=== PATIENT | female | born 1945 | race Caucasian/White ===

== ENCOUNTER 2022-02-27 10:14 | Outpatient (CLI) | payer MEDICARE, BC, SELFPAY ==
--- NOTE | 2022-02-27 06:00 | DI.RAD_ITS ---
Exam(s) XR PAIN CLINIC SACRIOILIAC 2V EXAM: XR PAIN CLINIC SACRIOILIAC 2V CLINICAL HISTORY: Dx: Sacroiliac Joint Dysfunction TECHNIQUE: 2D and realtime digital imaging was performed. CONTRAST MATERIAL: Refer to procedure report. COMPARISON: No exams were available for comparison FINDINGS: Fluoroscopy was provided for Dr. Bailey during the performance of a sacroiliac joint injection. Eliana ferrera refer to the procedure report for complete details. Ka,r=11.9 mGy IMPRESSION:
[2022-02-27 10:44] VITALS: BP 125/71; PULSE 82; RESP 20; TEMP 37.2; O2SAT 96
[2022-02-27 11:45] VITALS: BP 134/59; PULSE 79; RESP 21; O2SAT 94
--- NOTE | 2022-02-27 11:45 | PDOC.PAIN ---
Date of service: 02/27/22 Time of Service: 11:57 Pain Clinic Procedure Note Procedure Note Procedure Note: INTRA-ARTICULAR SI JOINT INJECTION Maria Del Rosario Fabian has been referred to the Pain Management Center for intra-articular SI joint injection. COMMENTS: She has had this procedure in the past with excellent results. Pre-procedure pain VAS was 8/10. Dx: Bilateral Sacroiliac joint dysfunction Patient was interviewed and the medical record reviewed. There were no medical, pharmacologic, radiographic or other structural contraindications to attempting fluoroscopically guided intra-articular SI joint injection. Risks and expected side effects as well as potential benefit of the procedure were reviewed and voiced concerns addressed. The printed consent form was signed and witnessed. Standard time-out procedure was performed. Patient was placed in the prone position on the fluoroscopy table and automated blood pressure cuff and pulse oximeter applied. The skin entry point for approaching the bilateral SI joints was identified under the most advantageous fluoroscopic view and marked. Following thorough Chlorhexadine preparation of the skin and draping and 1% lidocaine infiltration of the skin entry point and subcutaneous tissues, a 22 gauge spinal needle was placed under fluoroscopic guidance into the bilateral SI joints was identified under the most advantageous fluoroscopic view and marked. Intra-articular placement was confirmed by a clear arthrogram resulting from the injection of 0.25ml Omnipaque 240, 1ml 1% lidocaine, and 40mg Depomedrol were injected intra-articularily with an initial reproduction of a significant component of the usual pain. Vital signs were stable throughout the procedure and were as recorded in the docflowsheet by the nursing staff. If given, dosages of intravenous drugs for anxiolysis and analgesia were documented in MAR. Follow up plans and appointments were discussed with the patient. Post procedure instruction was given as documented in nursing documentation and having met discharge criteria, and was discharged from the Pain Management Center. COMMENTS: Post-procedure pain VAS was 4/10. If this procedure is found to be helpful, it can be completed up to 3 times per 12 months. Tirso Bailey DO, MPH [facility]-Pain Management [facility]-Center for Pain Management CC: Aamir Greene
[2022-02-27] MEDS: methylPREDNISolone ACETATE 80 MG/ML VIAL IJ (11:55)
[2022-02-27] MEDS: Omnipaque 240 MG/ML 50 ML BTL IJ (11:55)
== END 2022-02-27 10:15 | disposition home or self-care (01) ==
LOC: PC 10:14
PROVIDERS: PCP Family Medicine; Visit Provider Preventive Medicine Occupational Medicine
DX: M53.3 Sacrococcygeal disorders, not elsewhere classified (principal); M54.50 Low back pain, unspecified
CPT/HCPCS: 27096; 72200; G0260; J1040; Q9967

== ENCOUNTER 2022-07-09 16:03 | Outpatient (CLI) | payer MEDICARE, BC, SELFPAY ==
--- NOTE | 2022-07-09 06:00 | DI.RAD_ITS ---
Exam(s) XR PAIN CLINIC SACRIOILIAC 2V EXAM: XR PAIN CLINIC SACRIOILIAC 2V CLINICAL HISTORY: Dx: Sacroiliac Joint Dysfunction TECHNIQUE: 2D and realtime digital imaging was performed. CONTRAST MATERIAL: Refer to procedure report. COMPARISON: No exams were available for comparison FINDINGS: Fluoroscopy was provided for Dr. Bailey during the performance of a sacroiliac joint injection. Eliana ferrera refer to the procedure report for complete details. Ka,r=13.4 mGy IMPRESSION:
[2022-07-09 16:19] VITALS: BP 174/79; PULSE 74; RESP 20; TEMP 36.3; O2SAT 94
--- NOTE | 2022-07-09 16:43 | PDOC.PAIN ---
Date of service: 07/09/22 Time of Service: 17:02 Pain Managment Procedure Note Procedure Note Procedure Note: INTRA-ARTICULAR SI JOINT INJECTION Maria Del Rosario Fabian has been referred to the Pain Management Center for intra-articular SI joint injection. COMMENTS: She did have a bilateral SIJ injecitons on 02/27/22 with >3 months of >50% pain relief. Pre-procedure pain VAS was 7/10 Dx: Sacroiliac joint dysfunction Patient was interviewed and the medical record reviewed. There were no medical, pharmacologic, radiographic or other structural contraindications to attempting fluoroscopically guided intra-articular SI joint injection. Risks and expected side effects as well as potential benefit of the procedure were reviewed and voiced concerns addressed. The printed consent form was signed and witnessed. Standard time-out procedure was performed. Patient was placed in the prone position on the fluoroscopy table and automated blood pressure cuff and pulse oximeter applied. The skin entry point for approaching the bilateral SI joints was identified under the most advantageous fluoroscopic view and marked. Following thorough Chlorhexadine preparation of the skin and draping and 1% lidocaine infiltration of the skin entry point and subcutaneous tissues, a 22 gauge 3.5 spinal needle was placed under fluoroscopic guidance into the bilateral SI joints was identified under the most advantageous fluoroscopic view and marked. Intra-articular placement was confirmed by a clear arthrogram resulting from the injection of 0.25ml Omnipaque 240, 1ml 1% lidocaine, and 40mg Depomedrol were injected intra-articularily with an initial reproduction of a significant component of the usual pain. Vital signs were stable throughout the procedure and were as recorded in the docflowsheet by the nursing staff. If given, dosages of intravenous drugs for anxiolysis and analgesia were documented in MAR. Follow up plans and appointments were discussed with the patient. Post procedure instruction was given as documented in nursing documentation and having met discharge criteria, and was discharged from the Pain Management Center. COMMENTS: Post-procedure pain VAS was 0/10. This procedure can be repeated if she gets at least 50% pain improvement and/or 50% functional improvement for at least 3 months. Tirso Bailey DO, MPH [facility]-Pain Management [facility]-Center for Pain Management CC: Aamir Greene
[2022-07-09] MEDS: methylPREDNISolone ACETATE 80 MG/ML VIAL IJ (17:02)
[2022-07-09] MEDS: Omnipaque 240 MG/ML 50 ML BTL IJ (17:02)
[2022-07-09 17:05] VITALS: BP 175/83; PULSE 71; RESP 21; O2SAT 94
== END 2022-07-09 16:04 | disposition home or self-care (01) ==
LOC: PC 16:03
PROVIDERS: PCP Family Medicine; Visit Provider Preventive Medicine Occupational Medicine
DX: M46.1 Sacroiliitis, not elsewhere classified (principal)
CPT/HCPCS: 27096; 72200; J1040; Q9967

== ENCOUNTER 2022-11-20 11:25 | Outpatient (CLI) | payer MEDICARE, BC, SELFPAY ==
[2022-11-20 11:43] VITALS: BP 145/80; PULSE 59; RESP 20; TEMP 36.3; O2SAT 97
--- NOTE | 2022-11-20 12:38 | DI.RAD_ITS ---
Exam(s) XR PAIN CLINIC SACRIOILIAC 2V EXAM: XR PAIN CLINIC SACRIOILIAC 2V CLINICAL HISTORY: Dx: Sacroiliac Joint Dysfunction TECHNIQUE: 2D and realtime digital imaging was performed. Radiologist not present. CONTRAST MATERIAL: None. COMPARISON: No exams were available for comparison FINDINGS: Fluoroscopy was provided for pain management therapy. Please refer to procedure report or details. Radiation Exposure Index: Ka,r=16.04 mGy IMPRESSION: As above. RADIATION DOSE DELIVERED:
--- NOTE | 2022-11-20 12:39 | PDOC.PAIN_ITS ---
Date of service: 11/20/22 Time of Service: 12:40 Pain Managment Procedure Note Procedure Note Procedure Note: PROCEDURE NOTE BILATERAL INTRA-ARTICULAR SACROILIAC JOINT INJECTION Date of Service: November 20, 2022 Patient: Maria Del Rosario Fabian Provider: Tirso Ashley DO, MPH COMMENTS: I previously evaluated the patient in the office and their symptoms in relation to the sacroiliac joint pain have remained the same. She had 80% pain relief for 4 months with her last bilateral sacroiliac joint injection (07/09/2022). The pain has now returned Pre-operative diagnosis: Sacroiliac joint dysfunction Post-operative diagnosis: Same Pre-procedure pain: VAS= 8/10 Maria Del Rosario Fabian has been referred to our [facility] for a Bilateral intra-articular Sacroiliac joint injection. Maria Del Rosario was interviewed and the medical record reviewed. There were no medical, pharmacologic, radiographic or other structural contraindications to attempting a fluoroscopically-guided, contrast-enhanced, intra-articular Sacroiliac joint injection. The risks, benefits, and potential side effects of this procedure were reviewed with the patient. Questions and concerns were addressed. After it was clear that Maria Del Rosario was fully informed about the procedure, the printed consent form was signed by the patient and myself. Maria Del Rosario was placed in the prone position on the fluoroscopy table and an automated blood pressure cuff, 3 lead EKG, and pulse oximeter were applied. The skin entry point for approaching the Left sacroiliac joint was identified under the most advantageous fluoroscopic view and marked. Following thorough Chlorhexadine preparation of the skin and draping with sterile surgical drapes, 2 mls of 1% lidocaine was infiltrated into the skin at the entry point and the surrounding subcutaneous tissues. Next, a 3.5 22G spinal needle was placed under fluoroscopic guidance into the left sacroiliac joint. Intra-articular placement was confirmed by a clear arthrogram resulting from the injection of 0.25ml of Omnipaque-240. Next, 0.5 ml of Depo- Medrol 80 mg/ml was injected intra-articularly with an initial reproduction of a significant component of the usual pain. This was followed with 1 ml of 1% Lidocaine. The needle was then removed without difficulty. (49 ml of Omnipaque-240 was wasted). The exact procedure was completed on the opposite sacroiliac joint. Maria Del Rosario's vital signs were stable throughout the procedure and were as recorded in nursing records. Follow up plans and appointments were discussed with Maria Del Rosario. Post procedure i nstructions were given as documented in nursing records. Having met discharge criteria, Maria Del Rosario was discharged from the [facility]. COMMENTS: Post-procedure pain: VAS= 0/10. If the patient receives at least 50% improvement in pain and/or function for at least 3 months, this procedure can be repeated if needed. I personally performed this entire procedure. TIRSO ASHLEY DO, MPH ABP[employer]-subspecialty board certification in Pain Medicine [facility] [facility] Management
[2022-11-20] MEDS: Omnipaque 240 MG/ML 50 ML BTL IJ (12:42)
[2022-11-20] MEDS: methylPREDNISolone ACETATE 80 MG/ML VIAL IJ (12:42)
[2022-11-20 12:43] VITALS: BP 157/79; PULSE 86; RESP 23; O2SAT 93
== END 2022-11-20 11:26 | disposition home or self-care (01) ==
PROVIDERS: PCP Family Medicine; Visit Provider Preventive Medicine Occupational Medicine
DX: M46.1 Sacroiliitis, not elsewhere classified (principal); M54.50 Low back pain, unspecified
CPT/HCPCS: 27096; 72200; J1040; Q9967

== ENCOUNTER 2023-04-22 13:24 | Outpatient (CLI) | payer MEDICARE, BC, SELFPAY ==
[2023-04-22 13:44] VITALS: BP 128/55; PULSE 89; RESP 20; TEMP 36.6; O2SAT 93
--- NOTE | 2023-04-22 14:36 | PDOC.PAIN ---
Date of service: 04/22/23 Time of Service: 14:36 Pain Managment Procedure Note Procedure Note Procedure Note: PROCEDURE NOTE RIGHT L5 TRANSFORAMINAL EPIDURAL STEROID INJECTION Chief Complaint: RIGHT leg pain. Date of Service: April 22, 2023 Patient: Maria Del Rosario Fabian Provider: Tirso Ashley DO, MPH Maria Del Rosario Fabian has been referred to the Pain Management Center for a transforaminal epidural steroid injection. Pre-operative diagnosis: Lumbosacral Radiculopathy Post-operative diagnosis: Same Pre-Procedure Pain: VAS= 10/10 Comments: I previously evaluated the patient in our clinic and their symptoms remain the same as they were at that time. Maria Del Rosario was interviewed and the medical record reviewed. There were no medical, pharmacologic, radiographic or other structural contraindications to attempting a fluoroscopically-guided transforaminal lumbar epidural steroid injection. The risks, benefits, and potential side effects were reviewed with the patient. Risks include, but are not limited to, [id number] headache, infection, bleeding, nerve injury, spinal cord damage, allergic reaction, possible increase in symptoms over the ensuing 24 to 48 hours, paralysis, and . The patient appeared to understand, questions were answered to the patient?s satisfaction and the patient agreed to proceed. Once I obtained informed verbal consent, the printed consent form was signed by the patient and myself. A standard time-out procedure was performed. Maria Del Rosario was placed in the prone position on the fluoroscopy table and automated blood pressure cuff, three lead EKG, and pulse oximeter were applied. The skin entry point for entering/approaching the right L5 space for the transforaminal epidural steroid injection was marked. Following thorough chlorhexadine preparation of the skin and draping, 2 ml of 1% lidocaine was infiltrated into the skin over the entry point and subcutaneous tissues. Under fluoroscopic guidance, in ipsilateral oblique view, a co-axial approach using a 5 22G spinal needle was advanced to the base of the right L5 pedicle. The needle was advanced to the superio-posterior aspect of the neural foramen under lateral view. Oblique and AP views were rechecked. Under AP and lateral views, 1 ml of Omnipaque-240 was injected while visualized with fluoroscopy. There was no evidence of intravascular or intrathecal uptake, the epidural space was delineated. Next 1.5 ml of preservative-free Dexamethasone (10 mg/ml) was injected after negative aspiration. This was followed by 1 ml of preservative-free 1% lidocaine. (49 mls of Omnipaque-240 was wasted) There was no unusual discomfort expressed by Maria Del Rosario. The needle was withdrawn without difficulty. Maria Del Rosario was observed and was without hemodynamic, neurologic, or allergic reactions.? Fluoroscopic images were digitally archived. Maria Del Rosario's vital signs were stable throughout the procedure and were as recorded in the docflowsheet by the nursing staff.? If given, dosages of intravenous drugs for anxiolysis and analgesia were documented in MAR. Follow up plans and appointments were discussed with Maria Del Rosario. Post procedure instruction was given as documented in nursing records and having met discharge criteria Maria Del Rosario was discharged from the Pain Management Center. COMMENTS: Post-procedure pain: VAS= 0/10. Maria Del Rosario to contact Center for Pain Management as needed. If at least 50% improvement in pain and/or function for at least 3 months is achieved, this procedure can be repeated. I personally performed this entire procedure. TIRSO ASHLEY DO, MPH ABP[employer]-subspecialty board certification in Pain Medicine [facility]-Center for Pain Management
[2023-04-22 14:42] VITALS: BP 154/67; PULSE 86; RESP 22; O2SAT 94
--- NOTE | 2023-04-22 14:42 | DI.RAD_ITS ---
Exam(s) XR PAIN CLINIC LUMBAR SP 2V EXAM: XR PAIN CLINIC LUMBAR SP 2V CLINICAL HISTORY: Dx: Lumbar Radiculopathy. TECHNIQUE: Fluoroscopy was provided for the referring physician for guidance with performing pain cl inic injection procedure. COMPARISON: No exams were available for comparison FINDINGS: Please see procedure note for details. Fluoro time: 28.4 seconds RADIATION DOSE DELIVERED: Ka,r=25.17 mGy
[2023-04-22] MEDS: Dexamethasone Sod. Phos./Pres-Free 10 MG/ML VIAL IJ (14:44)
[2023-04-22] MEDS: Nerve Block Tray 1 EACH MC (14:44)
[2023-04-22] MEDS: Omnipaque 240 MG/ML 50 ML BTL IJ (14:44)
== END 2023-04-22 13:25 | disposition home or self-care (01) ==
LOC: PC 13:24
PROVIDERS: PCP Family Medicine; Visit Provider Preventive Medicine Occupational Medicine
DX: M54.50 Low back pain, unspecified (principal); M54.17 Radiculopathy, lumbosacral region
CPT/HCPCS: 00123; 64483; 72100; J1100; Q9967

== ENCOUNTER 2023-07-30 09:24 | Outpatient (CLI) | payer MEDICARE, BC, SELFPAY ==
--- NOTE | 2023-07-30 06:00 | DI.RAD_ITS ---
Exam(s) XR PAIN CLINIC SACRIOILIAC 2V EXAM: XR PAIN CLINIC SACRIOILIAC 2V CLINICAL HISTORY: DX: Sacroiliac Joint Dysfunction TECHNIQUE: 2D and realtime digital imaging was performed. Radiologist not present. CONTRAST MATERIAL: None. COMPARISON: No exams were available for comparison FINDINGS: Fluoroscopy was provided for pain management therapy. Please refer to procedure report or details. Radiation Exposure Index: Ka,r=11.21 mGy IMPRESSION: As above. RADIATION DOSE DELIVERED:
[2023-07-30 09:34] VITALS: BP 135/65; PULSE 92; RESP 20; TEMP 36.7; O2SAT 96
[2023-07-30 10:12] VITALS: BP 137/67; PULSE 81; RESP 18; O2SAT 91
[2023-07-30] MEDS: Nerve Block Tray 1 EACH MC (10:14)
[2023-07-30] MEDS: methylPREDNISolone ACETATE 80 MG/ML VIAL IJ (10:14)
[2023-07-30] MEDS: Omnipaque 240 MG/ML 50 ML BTL IJ (10:14)
--- NOTE | 2023-08-03 06:19 | PDOC.PAIN ---
Date of service: 07/30/23 Time of Service: 10:30 Pain Managment Procedure Note Procedure Note Procedure Note: PROCEDURE NOTE LEFT INTRA-ARTICULAR SHOULDER AC JOINT STEROID INJECTION Date of Service: July 30, 2023 Patient:? Maria Del Rosario Fabian? Provider:? Tirso Ashley DO, MPH Maria Del Rosario Fabian has been referred to the Pain Management Center for LEFT intra-articular acromioclavicular (AC) joint injection. Pre-operative diagnosis: AC joint Osteoarthritis Post-operative diagnosis: Same Pre-procedure pain: VAS=8/10 COMMENTS: I previously evaluated him in the office. [place] interviewed and the medical record was reviewed.? There were no medical, pharmacologic, radiographic or other structural contraindications to attempting fluoroscopically guided RIGHT intra-articular AC joint injection.? Risks and expected side effects as well as potential benefit of the procedure were reviewed with Maria Del Rosario, and the patient's voiced concerns were addressed.? The printed consent form was signed.? Standard time-out procedure was performed. Maria Del Rosario was placed in the supine position on the fluoroscopy table and the pulse oximeter was applied. The skin entry point for approaching anterior aspect of the RIGHT AC joint was identified under the most advantageous fluoroscopic view and marked. Following thorough Chlorhexadine preparation of the skin and draping, 1% lidocaine infiltration of the skin entry point and subcutaneous tissues was accomplished using a 1.5 25G needle. Next, the 1.5 25G needle was advanced to the center of the AC joint in a anterior to lateral approach under fluoroscopic guidance into the RIGHT AC joint. Intra-articular placement was confirmed by a clear arthrogram resulting from the injection of 0.5 ml Omnipaque 240. Next, 40 mg Depo-Medrol (80mg/cc) mixed was injected and this was followed by 1 cc of 2% Lidocaine into the joint. (49 mls of Omnipaque was wasted). There was no unusual discomfort expressed by Maria Del Rosario. The needle was withdrawn without difficulty. Maria Del Rosario was observed and was without hemodynamic, neurologic, or allergic reactions.? Fluoroscopic images were digitally archived. Maria Del Rosario's vital signs were stable throughout the procedure and were as recorded in the docflowsheet by the nursing staff. If given, dosages of intravenous drugs for anxiolysis and analgesia were documented in MAR. Follow up plans and appointments were discussed with Maria Del Rosario.? Post procedure instruction was given as documented in nursing documentation and having met discharge criteria, Maria Del Rosario was discharged from the [facility]. COMMENTS: No apparent complications. Post-procedure pain: VAS= 4/10. Maria Del Rosario to contact Center for Pain Management as needed. If at least 50% improvement in pain and/or function for at least 3 months is achieved, this procedure can be repeated. I personally completed the entire procedure. TIRSO ASHLEY DO, MPH [employer] - Subspecialty board certification in Pain Medicine [facility]-Center for Pain Management US Guided Injections Type of Ultrasound Guided Injection: Neck Left Levator scapulae, Paraspinous and Trapezius muscle Trigger Point Injection Pre-Procedural Evaluation Pain to the upper left shoulder and neck Referral Patient has been referred to the Pain Management Center for Left Levator scapulae, Paraspinous and Trapezius muscle Neck Trigger Point Injection for a chief complaint of Pre-Procedural Pain Score Pre-procedural pain score: 8/10 Patient Interview Patient was interviewed and medical record reviewed: Yes There were no contraindications to performing an US guided procedure. Risks,expected side effects, potential benefits were reviewed. The patient consent form was signed and witnessed. Standard time out procedure was performed. Procedure Description No sedation given for procedure Patient was placed in the prone position and the following Pulse Ox applied. Pre-Procedure ultrasound scanning performed using a Linear 9 MHz probe Site Preparation chloroprep Local Anesthesia Skin and subcutaneous tissues anesthetized with: 2 mL of Lidocaine 2%. A 21 G 3.5 Pajunk ultrasound needle was placed under live US guidance using an in-plane approach to the target area. After visualization of the needle tip at the target area Dep-Medrol 80mg per cc and Lidocaine 2% were used. Total of Injectate/Medication Note: 0.5 cc of Depomedrol followed by 4 cc of 2% Lidocaine spread out to the 3 muscles Negative aspiration for blood. [place] were removed without difficulty. Ultrasound images were captured and stored. Patient Mental Status Patient was alert during procedure Vital Signs Vital signs were stable throughout the procedure and recorded by nursing. Follow Up/Discharge Follow up plans and appointments were discussed with patient. Post procedure instruction was given as documented in nursing documentation. Discharge criteria met and patient discharged from Pain Management Center: Yes Post Procedure Pain Post Procedure Pain: 6/10 Patient tolerated procedure well Procedure Outcome: Successful Trigger Point Injection 3+muscles Non US Guided Injections Procedure Description Patient was placed in the prone position Post Procedure Pain Post Procedure Pain: 6/10
--- NOTE | 2023-08-03 06:28 | PDOC.PAIN_ITS ---
Date of service: 07/30/23 Time of Service: 10:20 Pain Managment Procedure Note Procedure Note Procedure Note: PROCEDURE NOTE BILATERAL INTRA-ARTICULAR SACROILIAC JOINT INJECTION Date of Service: July 30, 2023 Patient: Maria Del Rosario Fabian Provider: Tirso Ashley DO, MPH COMMENTS: I previously evaluated the patient in the office and their symptoms in relation to the sacroiliac joint pain have remained the same. Pre-operative diagnosis: Sacroiliac joint dysfunction Post-operative diagnosis: Same Pre-procedure pain: VAS= 10/10 Maria Del Rosario Fabian has been referred to our Center [facility] Center for a Bilateral intra-articular Sacroiliac joint injection. Maria Del Rosario was interviewed and the medical record reviewed. There were no medical, pharmacologic, radiographic or other structural contraindications to attempting a fluoroscopically-guided, contrast-enhanced, intra-articular Sacroiliac joint injection. The risks, benefits, and potential side effects of this procedure were reviewed with the patient. Questions and concerns were addressed. After it was clear that Maria Del Rosario was fully informed about the procedure, the printed consent form was signed by the patient and myself. Maria Del Rosario was placed in the prone position on the fluoroscopy table and an automated blood pressure cuff, 3 lead EKG, and pulse oximeter were applied. The skin entry point for approaching the Left sacroiliac joint was identified under the most advantageous fluoroscopic view and marked. Following thorough Chlorhexadine preparation of the skin and draping with sterile surgical drapes, 2 mls of 1% lidocaine was infiltrated into the skin at the entry point and the surrounding subcutaneous tissues. Next, a 3.5 22G spinal needle was placed under fluoroscopic guidance into the Left sacroiliac joint. Intra-articular placement was confirmed by a clear arthrogram resulting from the injection of 0.25ml of Omnipaque-240. Next, 1 ml of Depo- Medrol 40 mg/ml was injected intra-articularly with an initial reproduction of a significant component of the usual pain. This was followed with 1 ml of 1% Lidocaine. The needle was then removed without difficulty. (49 ml of Omnipaque-240 was wasted). The exact procedure was completed on the opposite sacroiliac joint. Stefs vital signs were stable throughout the procedure and were as recorded in nursing records. Follow up plans and appointments were discussed with Maria Del Rosario. Post procedure instructions were given as documented in nursing records. Having met discharge criteria, Maria Del Rosario was discharged from the Center [facility]. COMMENTS: Post-procedure pain: VAS= 1/10. If the patient receives at least 50% improvement in pain and/or function for at least 3 months, this procedure can be repeated if needed. I personally performed this entire procedure. TIRSO ASHLEY DO, MPH ABPMR-subspecialty board certification in Pain Medicine [facility]-Center for Pain Management
== END 2023-07-30 09:25 | disposition home or self-care (01) ==
LOC: PC 09:24
PROVIDERS: PCP Family Medicine; Visit Provider Preventive Medicine Occupational Medicine
DX: M54.50 Low back pain, unspecified (principal); M46.1 Sacroiliitis, not elsewhere classified
CPT/HCPCS: 27096; 72200; J1010; Q9967